=== PATIENT | male | born 1975 | race Caucasian/White ===

== ENCOUNTER 2016-08-24 18:16 | Emergency (ER) | payer OTHER ==
[2016-08-24 18:17] VITALS: BMI 30.9
[2016-08-24 18:25] VITALS: BP 149/87; PULSE 72; RESP 18; TEMP 97.7; O2SAT 100
--- NOTE | 2016-08-24 18:31 | ED PDOC ---
HPI: CCC, URI, Sore Throat Time Seen by Provider: 08/24/16 18:29 Chief Complaint (Nursing): ENT Problem Chief Complaint (Provider): Sleep Deprivation History Per: Patient Additional Complaint(s): Patient is a 41 yo male, PMH of HTN, has been waking up in middle of the night with choking/gaging. Patient was seen by ENT, insurance does not cover sleep apnea tests. Patient denies cough or fever. Past Medical History Reviewed: Nursing Documentation, Vital Signs Vital Signs: Last Vital Signs Temp 97.7 F 08/24/16 18:22 Pulse 72 08/24/16 18:22 Resp 18 08/24/16 18:22 BP 149/87 08/24/16 18:22 Pulse Ox 100 08/24/16 18:31 - Medical History PMH: Diverticulitis, Gall Bladder Disease (GALLSTONES), HTN Denies: Chronic Kidney Disease - Surgical History Surgical History: Cholecystectomy, Endoscopy - Family History Family History: States: Unknown Family Hx - Living Arrangements Living Arrangements: With Family - Social History Current smoker - smoking cessation education provided: No Alcohol: Social Drugs: Denies - Home Medications Home Medications: Ambulatory Orders Medication Instructions Recorded oxyCODONE/Acetaminophen [Percocet 1 tab PO Q4H PRN #0 tab 05/22/15 5/325 mg Tab] - Allergies Allergies/Adverse Reactions: Allergies Allergy/AdvReac Type Severity Reaction Status Date / Time No Known Allergies Allergy Verified 07/12/14 22:42 Review of Systems ROS Statement: Except As Marked, All Systems Reviewed And Found Negative Constitutional: Positive for: Other (fatigue) Physical Exam - Reviewed Nursing Documentation Reviewed: Yes Vital Signs Reviewed: Yes - Physical Exam Appears: Positive for: Well, Non-toxic, No Acute Distress Head Exam: Positive for: ATRAUMATIC, NORMAL INSPECTION, NORMOCEPHALIC Skin: Positive for: Normal Color, Warm, DRY Eye Exam: Positive for: EOMI, Normal appearance, PERRL ENT: Positive for: Normal ENT Inspection Neck: Positive for: Normal, Painless ROM Cardiovascular/Chest: Positive for: Regular Rate, Rhythm Respiratory: Positive for: CNT, Normal Breath Sounds Gastrointestinal/Abdominal: Positive for: Normal Exam, Bowel Sounds, Soft Back: Positive for: Normal Inspection Extremity: Positive for: Normal ROM Neurologic/Psych: Positive for: Alert, Oriented - ECG O2 Sat by Pulse Oximetry: 100 Medical Decision Making Medical Decision Making: Pt educated on sleep apnea and demonstrated full understanding. Pt strongly advised to begin weight loss regimen and instructed to restrict use of alcohol. Pt advised to contact [facility] in order to schedule polysomnography Disposition - Clinical Impression Clinical Impression: Sleep apnea - Patient ED Disposition Is Patient to be Admitted: No - Disposition Disposition: Routine/Home Disposition Time: 19:11 Condition: STABLE Forms: [employer] ([place])
== END 2016-08-24 19:33 | disposition home or self-care (01) ==
LOC: H.ER 18:16
DX: Z72.820 Sleep deprivation (principal); I10 Essential (primary) hypertension; G47.30 Sleep apnea, unspecified